=== PATIENT | female | born 1955 | race African-American/Black ===

== ENCOUNTER 2017-02-08 15:10 | Inpatient (IN) | payer OTHER ==
[~2017-02-08] VITALS: Ht 172.7 cm; Wt 93.0 kg
[2017-02-08 15:10] VITALS: BP_SYST 104
[~2017-02-08 15:10] MED LIST: ASPI-862 PO; DIOVAN PO; Hydrochlorothiazide PO; INSU100V SUBCUT; INSU100V9 SUBCUT; NEXIUM PO; SIMVASTATIN PO
[2017-02-08 15:45] LABS: BASOPHILS # (AUTO) 0.1 K/uL (0.0-0.2); EOSINOPHILS % (AUTO) 0.6 % (0.0-4.0); HEMATOCRIT 35.3 % (36-48); HEMOGLOBIN 11.5 g/dL (12.0-16.0); LYMPHOCYTES # (AUTO) 0.9 K/uL (1.0-5.5); MEAN CORPUSCULAR HEMOGLOBIN 27 pg (27-31); MEAN CORPUSCULAR HGB CONC 33 % (32-36); MEAN CORPUSCULAR VOLUME 83 fL (79.0-98.0); MONOCYTES # (AUTO) 0.3 K/uL (0.0-1.0); MONOCYTES % (AUTO) 4.8 % (1.7-9.3); NEUTROPHILS % (AUTO) 78.6 % (40.0-70.0); PLATELET COUNT (AUTO) 249 K/uL (130-430); RED BLOOD CELL COUNT(AUTO) 4.24 MIL/uL (4.2-6.2); RED CELL DISTRIBUTION WIDTH 14.5 % (9.0-15.0); WHITE BLOOD COUNT (AUTO) 6.3 K/uL (4.8-10.8)
[2017-02-08 16:01] LABS: CALCIUM 10.3 mg/dL (8.4-11.0); CREATININE 1.49 mg/dL (0.55-1.30); POTASSIUM 3.9 mmol/L (3.5-5.1)
[2017-02-08 16:07] LABS: ALBUMIN 3.4 g/dL (3.4-4.8); TOTAL BILIRUBIN 0.2 mg/dL (0.0-1.0); TOTAL PROTEIN, SERUM 8.4 g/dL (6.4-8.3)
[2017-02-08 16:52] LABS: BILIRUBIN,URINE NEGATIVE (NEGATIVE); CLARITY/URINE SL CLOUDY (CLEAR); COLOR,URINE YELLOW (YELLOW); GLUCOSE,URINE 3+ (NEGATIVE); KETONES,URINE NEGATIVE (NEGATIVE); LEUKOCYTE ESTERASE ,URINE NEGATIVE (NEGATIVE); NITRITE, URINE POSITIVE (NEGATIVE); PROTEIN URINE TRACE (NEGATIVE); UROBILINOGEN,URINE 0.2 (0.2-1.0)
[2017-02-08 16:55] LABS: BLOOD, URINE TRACE (NEGATIVE)
[2017-02-08] MEDS ORDERED: ASPIRIN 81 MG TAB.CHEW PO ONE (17:00)
[2017-02-08] MEDS ORDERED: ENOXAPARIN SODIUM 80 MG/0.8 ML SYRINGE SUBCUT ONE (17:15)
[2017-02-08 17:27] LABS: BACTERIA,URINE MANY /HPF (None Seen); RBC,URINE 0-3 /HPF (0-3)
[2017-02-08 17:28] LABS: MUCUS,URINE 1+ /LPF (None Seen)
[2017-02-08] MEDS ORDERED: POTASSIUM CHLORIDE 10 MEQ TAB.PRT.SR PO PRN (17:45)
[2017-02-08] MEDS ORDERED: DEXTROSE 50% JECT 50 ML DISP.SYRIN IVP PRN (17:45)
[2017-02-08] MEDS ORDERED: MAGNESIUM SULFATE 50 ML IV PRN (17:45)
[2017-02-08] MEDS ORDERED: ACETAMINOPHEN 325 MG TABLET PO PRN (17:45)
[2017-02-08] MEDS ORDERED: MORPHINE 2 MG/ML INJ. SYRINGE IVP PRN (17:45)
[2017-02-08] MEDS ORDERED: ONDANSETRON HCL 4 MG/2 ML VIAL IVP PRN (17:45)
[2017-02-08] MEDS ORDERED: LORazepam 2 MG/ML VIAL IVP PRN (17:45)
[2017-02-08] MEDS ORDERED: DOCUSATE SODIUM 100 MG CAPSULE PO PRN (17:45)
[2017-02-08] MEDS ORDERED: ZOLPIDEM TARTRATE 5 MG TABLET PO PRN (17:45)
[2017-02-08] MEDS ORDERED: PROM25TA15 PO (18:02)
[2017-02-08] MEDS ORDERED: CLOP75TA2 PO (18:02)
[2017-02-08] MEDS ORDERED: FERR-57 PO (18:02)
[2017-02-08] MEDS ORDERED: CANA100T PO (18:02)
[2017-02-08] MEDS ORDERED: HYDR25TA4 PO (18:02)
[2017-02-08] MEDS ORDERED: ENAL20TA PO (18:02)
[2017-02-08] MEDS ORDERED: LIP20 PO (18:02)
[2017-02-08] MEDS ORDERED: SSNOVOLOG SUBCUT (18:02)
[2017-02-08] MEDS ORDERED: GLU850 PO (18:02)
[2017-02-08] MEDS ORDERED: DOCU250C PO (18:02)
[2017-02-08] MEDS ORDERED: NEU300 PO (18:02)
[2017-02-08] MEDS ORDERED: FAMO20TA98 PO (18:02)
[2017-02-08 18:05] VITALS: BP_SYST 113
[2017-02-08] MEDS ORDERED: SENNS PO (18:22)
[2017-02-08] MEDS ORDERED: PRO20 PO (18:22)
[2017-02-08] MEDS ORDERED: ONDA4TAB5 PO (18:22)
[2017-02-08] MEDS: METOPROLOL TARTRATE 25 MG TABLET PO SCH (21:31)
[2017-02-09 00:52] VITALS: BP_SYST 100
[2017-02-09] MEDS: NACL 0.9% 1,000 ML IV SCH ×2 (00:54→13:52)
[2017-02-09 03:46] VITALS: BP_SYST 100
[2017-02-09 06:44] LABS: BASOPHILS # (AUTO) 0.1 K/uL (0.0-0.2); BASOPHILS % (AUTO) 1.4 % (0.0-2.0); EOSINOPHILS # (AUTO) 0.1 K/uL (0.0-0.4); EOSINOPHILS % (AUTO) 1.2 % (0.0-4.0); HEMATOCRIT 33.6 % (36-48); HEMOGLOBIN 10.9 g/dL (12.0-16.0); LYMPHOCYTES # (AUTO) 2.3 K/uL (1.0-5.5); LYMPHOCYTES % (AUTO) 40.8 % (20.5-51.5); MEAN CORPUSCULAR HEMOGLOBIN 27 pg (27-31); MEAN CORPUSCULAR HGB CONC 33 % (32-36); MEAN CORPUSCULAR VOLUME 83 fL (79.0-98.0); MONOCYTES # (AUTO) 0.4 K/uL (0.0-1.0); MONOCYTES % (AUTO) 6.6 % (1.7-9.3); NEUTROPHILS # (AUTO) 2.8 K/uL (1.8-7.7); PLATELET COUNT (AUTO) 251 K/uL (130-430); RED BLOOD CELL COUNT(AUTO) 4.04 MIL/uL (4.2-6.2); RED CELL DISTRIBUTION WIDTH 14.4 % (9.0-15.0); WHITE BLOOD COUNT (AUTO) 5.7 K/uL (4.8-10.8)
[2017-02-09 07:44] LABS: POTASSIUM 3.7 mmol/L (3.5-5.1)
[2017-02-09 07:45] LABS: ALBUMIN 3.1 g/dL (3.4-4.8); CREATININE 1.2 mg/dL (0.55-1.30); TOTAL BILIRUBIN 0.3 mg/dL (0.0-1.0); TOTAL PROTEIN, SERUM 7.6 g/dL (6.4-8.3)
[2017-02-09 08:15] VITALS: BP_SYST 102
[2017-02-09 08:17] LABS: THYROID STIMULATING HORMONE 0.61 uIu/mL (0.34-4.82)
[2017-02-09] MEDS: METOPROLOL TARTRATE 25 MG TABLET PO SCH ×2 (09:00→21:11)
[2017-02-09] MEDS ORDERED: ASPIRIN 325 MG TABLET (ECOTRIN) PO SCH (09:00)
[2017-02-09] MEDS: CLOPIDOGREL BISULFATE 75 MG TABLET PO SCH (09:06)
[2017-02-09] MEDS: ASPIRIN 81 MG TAB.CHEW PO SCH (09:07)
[2017-02-09] MEDS: ATORVASTATIN 20 MG TABLET PO SCH (09:07)
[2017-02-09] MEDS: FLUoxetine HCL 20 MG CAPSULE (PROzac) PO SCH (09:12)
[2017-02-09] MEDS: GABAPENTIN 300 MG CAPSULE PO SCH ×2 (09:12→21:10)
[2017-02-09] MEDS: cefTRIAXone 1 GM in D5W 50 ML IV SCH (10:26)
[2017-02-09] MEDS: INSULIN ASPART 100 UNITS/ML, 10 ML VIAL (NovoLOG) SUBCUT PRN ×3 (11:56→21:19)
[2017-02-09 12:03] VITALS: BP_SYST 110
[2017-02-09 16:19] VITALS: BP_SYST 120
[2017-02-09 19:45] VITALS: BP_SYST 122
[2017-02-10 00:12] VITALS: BP_SYST 124
[2017-02-10] MEDS: NACL 0.9% 1,000 ML IV SCH (04:21)
[2017-02-10 05:03] VITALS: BP_SYST 119
[2017-02-10] MEDS: INSULIN ASPART 100 UNITS/ML, 10 ML VIAL (NovoLOG) SUBCUT PRN ×3 (06:27→21:03)
[2017-02-10 07:12] LABS: BASOPHILS % (AUTO) 0.4 % (0.0-2.0); EOSINOPHILS # (AUTO) 0.1 K/uL (0.0-0.4); EOSINOPHILS % (AUTO) 2.6 % (0.0-4.0); HEMATOCRIT 31.3 % (36-48); HEMOGLOBIN 10.2 g/dL (12.0-16.0); LYMPHOCYTES % (AUTO) 37.9 % (20.5-51.5); MEAN CORPUSCULAR HEMOGLOBIN 28 pg (27-31); MEAN CORPUSCULAR HGB CONC 33 % (32-36); MEAN CORPUSCULAR VOLUME 85 fL (79.0-98.0); MONOCYTES # (AUTO) 0.5 K/uL (0.0-1.0); MONOCYTES % (AUTO) 8.7 % (1.7-9.3); NEUTROPHILS # (AUTO) 2.6 K/uL (1.8-7.7); NEUTROPHILS % (AUTO) 50.4 % (40.0-70.0); PLATELET COUNT (AUTO) 242 K/uL (130-430); RED CELL DISTRIBUTION WIDTH 13.9 % (9.0-15.0); WHITE BLOOD COUNT (AUTO) 5.2 K/uL (4.8-10.8)
[2017-02-10 08:26] LABS: CALCIUM 9.1 mg/dL (8.4-11.0); CREATININE 1.07 mg/dL (0.55-1.30); POTASSIUM 4.1 mmol/L (3.5-5.1)
[2017-02-10 08:35] VITALS: BP_SYST 121
[2017-02-10 09:02] LABS: ALBUMIN 2.8 g/dL (3.4-4.8); TOTAL BILIRUBIN 0.3 mg/dL (0.0-1.0); TOTAL PROTEIN, SERUM 6.4 g/dL (6.4-8.3)
[2017-02-10] MEDS: cefTRIAXone 1 GM in D5W 50 ML IV SCH (09:13)
[2017-02-10] MEDS: ASPIRIN 81 MG TAB.CHEW PO SCH (10:55)
[2017-02-10] MEDS: GABAPENTIN 300 MG CAPSULE PO SCH ×2 (10:55→21:00)
[2017-02-10] MEDS: ATORVASTATIN 20 MG TABLET PO SCH (10:55)
[2017-02-10] MEDS: METOPROLOL TARTRATE 25 MG TABLET PO SCH ×2 (10:56→21:00)
[2017-02-10] MEDS: CLOPIDOGREL BISULFATE 75 MG TABLET PO SCH (10:56)
[2017-02-10] MEDS: FLUoxetine HCL 20 MG CAPSULE (PROzac) PO SCH (10:56)
[2017-02-10 12:06] VITALS: BP_SYST 136
[2017-02-10 16:34] VITALS: BP_SYST 135
[2017-02-10 19:58] VITALS: BP_SYST 137
[2017-02-11 00:13] VITALS: BP_SYST 139
[2017-02-11 04:33] VITALS: BP_SYST 124
[2017-02-11] MEDS: INSULIN ASPART 100 UNITS/ML, 10 ML VIAL (NovoLOG) SUBCUT PRN ×4 (06:25→21:20)
[2017-02-11 06:50] LABS: BASOPHILS % (AUTO) 0.5 % (0.0-2.0); EOSINOPHILS # (AUTO) 0.2 K/uL (0.0-0.4); EOSINOPHILS % (AUTO) 2.9 % (0.0-4.0); HEMATOCRIT 32.8 % (36-48); HEMOGLOBIN 10.3 g/dL (12.0-16.0); LYMPHOCYTES # (AUTO) 1.6 K/uL (1.0-5.5); LYMPHOCYTES % (AUTO) 27.3 % (20.5-51.5); MEAN CORPUSCULAR HEMOGLOBIN 27 pg (27-31); MEAN CORPUSCULAR HGB CONC 32 % (32-36); MEAN CORPUSCULAR VOLUME 85 fL (79.0-98.0); MONOCYTES # (AUTO) 0.4 K/uL (0.0-1.0); MONOCYTES % (AUTO) 6.1 % (1.7-9.3); NEUTROPHILS # (AUTO) 3.8 K/uL (1.8-7.7); NEUTROPHILS % (AUTO) 63.2 % (40.0-70.0); PLATELET COUNT (AUTO) 283 K/uL (130-430); RED BLOOD CELL COUNT(AUTO) 3.87 MIL/uL (4.2-6.2); RED CELL DISTRIBUTION WIDTH 13.9 % (9.0-15.0)
[2017-02-11 07:12] LABS: CALCIUM 9.5 mg/dL (8.4-11.0); CREATININE 1.09 mg/dL (0.55-1.30)
[2017-02-11] MEDS: cefTRIAXone 1 GM in D5W 50 ML IV SCH (09:05)
[2017-02-11] MEDS: FLUoxetine HCL 20 MG CAPSULE (PROzac) PO SCH (09:25)
[2017-02-11] MEDS: METOPROLOL TARTRATE 25 MG TABLET PO SCH ×2 (09:25→21:05)
[2017-02-11] MEDS: ASPIRIN 81 MG TAB.CHEW PO SCH (09:25)
[2017-02-11] MEDS: GABAPENTIN 300 MG CAPSULE PO SCH ×2 (09:26→21:04)
[2017-02-11] MEDS: ATORVASTATIN 20 MG TABLET PO SCH (09:26)
[2017-02-11] MEDS: CLOPIDOGREL BISULFATE 75 MG TABLET PO SCH (09:26)
[2017-02-11 12:05] VITALS: BP_SYST 131
[2017-02-11 16:48] VITALS: BP_SYST 129
[2017-02-11 19:45] VITALS: BP_SYST 138
[2017-02-11 23:20] VITALS: BP_SYST 144
== END 2017-02-11 23:43 | DRG 280 ==
LOC: SED 15:10 → STU 17:24 → SMU 02-11 21:09
PROVIDERS: ADMIT General Practice; ATTEND General Practice
DX: I21.4 Non-ST elevation (NSTEMI) myocardial infarction (principal); N17.0 Acute kidney failure with tubular necrosis; E44.0 Moderate protein-calorie malnutrition; N39.0 Urinary tract infection, site not specified; I69.354 Hemiplegia and hemiparesis following cerebral infarction affecting left non-dominant side; I10 Essential (primary) hypertension; E11.42 Type 2 diabetes mellitus with diabetic polyneuropathy; Z90.710 Acquired absence of both cervix and uterus; Z99.3 Dependence on wheelchair; Z68.31 Body mass index [BMI] 31.0-31.9, adult; Z79.4 Long term (current) use of insulin; Z79.899 Other long term (current) drug therapy; Z88.2 Allergy status to sulfonamides
CPT/HCPCS: 36415; 70450-TC; 71010; 80048; 80053; 80061; 81000-TC; 82962; 83036; 83735-TC; 83880; 84443-TC; 84484; 85025; 85610-TC; 85730-TC; 87081; 87086; 87230-TC; 93005; 93306; 96372; 99285; J0696; J1650; J1815; J7030; J7060